=== PATIENT | male | born 1980 | race American Indian/Alaskan Native ===

== ENCOUNTER 2017-04-30 23:16 | Emergency (ER) | payer SELFPAY ==
[2017-04-30 23:39] VITALS: BP 156/103
[2017-05-01 00:38] LABS: Bilirubin,Urine NEG (Negative); Blood,Urine NEG (Negative); Calcium Oxalate Crystals,Urine 1+; Color,Urine Yellow (Yellow); Mucus,Urine FEW /HPF; Protein,Urine <15 mg/dL mg/dL (Negative)
--- NOTE | 2017-05-01 01:43 | Emergency Department Report ---
ED Male HPI - General Chief complaint: Urogenital-Male Stated complaint: PENILE PAIN Time Seen by Provider: 05/01/17 01:38 Source: patient Mode of arrival: Ambulatory Limitations: No Limitations - History of Present Illness Initial comments: 37-year-old -[place] male comes in for complaint of burning on urination 2 weeks. Patient reports he has not seen any penile discharge. He reports he is sexually active last 2 weeks. He is actively women unprotected. He does have a past medical history of hypertension and is taken off amlodipine/ Benzapril. Patient does not have a primary care provider at this time. Patient denies any nausea vomiting no fever no chills. MD Complaint: dysuria - Related Data Previous Rx's Medication Instructions Recorded Last Taken Type Doxycycline [Vibramycin CAP] 100 mg PO Q12HR #20 capsule 05/01/17 Unknown Rx Allergies Allergy/AdvReac Type Severity Reaction Status Date / Time No Known Allergies Allergy Unverified 04/30/17 23:34 ED Review of Systems ROS: Stated complaint: PENILE PAIN Other details as noted in HPI Constitutional: denies: chills, fever Eyes: denies: eye pain, eye discharge, vision change ENT: denies: ear pain, throat pain Respiratory: denies: cough, shortness of breath, wheezing Cardiovascular: denies: chest pain, palpitations Endocrine: no symptoms reported Gastrointestinal: denies: abdominal pain, nausea, diarrhea Genitourinary: dysuria. denies: urgency Musculoskeletal: denies: back pain, joint swelling, arthralgia Skin: denies: rash, lesions Neurological: denies: headache, weakness, paresthesias Psychiatric: denies: anxiety, depression Hematological/Lymphatic: denies: easy bleeding, easy bruising ED Past Medical Hx - Past Medical History Previous Medical History?: Yes Hx Hypertension: Yes - Surgical History Past Surgical History?: Yes Additional Surgical History: Rt knee - Social History Smoking Status: Never Smoker Substance Use Type: None - Medications Home Medications: Home Medications Medication Instructions Recorded Confirmed Last Taken Type Doxycycline [Vibramycin CAP] 100 mg PO Q12HR #20 capsule 05/01/17 Unknown Rx ED Physical Exam - General Limitations: No Limitations General appearance: alert, in no apparent distress - Head Head exam: Present: atraumatic, normocephalic - Eye Eye exam: Present: normal appearance - ENT ENT exam: Present: mucous membranes moist - Neck Neck exam: Present: normal inspection - Respiratory Respiratory exam: Present: normal lung sounds bilaterally. Absent: respiratory distress - Cardiovascular Cardiovascular Exam: Present: regular rate, normal rhythm. Absent: systolic murmur, diastolic murmur, rubs, gallop - GI/Abdominal GI/Abdominal exam: Present: soft, normal bowel sounds - Rectal Rectal exam: Present: deferred - Extremities Exam Extremities exam: Present: normal inspection - Back Exam Back exam: Present: normal inspection - Neurological Exam Neurological exam: Present: alert, oriented X3 - Psychiatric Psychiatric exam: Present: normal affect, normal mood - Skin Skin exam: Present: warm, dry, intact, normal color. Absent: rash ED Course Vital Signs 04/30/17 23:34 Temperature 98.3 F Pulse Rate 92 H Respiratory 19 Rate Blood Pressure 156/103 O2 Sat by Pulse 99 Oximetry ED Medical Decision Making - Medical Decision Making Patient has been evaluated by this provider fast track. I discussed the patient that his urinalysis came back negative. I discussed the patient we can present to treat him for STD. Discussed the patient he can follow-up and 3-7 days in medical records if he would like to know the results of his gonorrhea and chlamydia testing. Discussed the patient I will refer him to [facility] for management of his hypertension. Patient verbalized understanding Critical care attestation.: If time is entered above; I have spent that time in minutes in the direct care of this critically ill patient, excluding procedure time. ED Disposition Clinical Impression: Dysuria, Concern about STD in male without diagnosis Disposition: DC-01 TO HOME OR SELFCARE Is pt being admited?: No Does the pt Need Aspirin: No Condition: Stable Instructions: Sexually Transmitted Diseases (ED), Safe Sex (ED) Additional Instructions: Please take medication as prescribed. Please follow-up with [facility] for management of her hypertension. Please continue with your hypertensive medicine. Please inform her sexual partner that she been tested and treated for STD. Advised to not have intercourse until your partners tested and treated. You may come up here in 3-7 days to medical records to obtain near cultures for gonorrhea and chlamydia. Prescriptions: Doxycycline [Vibramycin CAP] 100 mg PO Q12HR #20 capsule Referrals: EDGAR MATA MD [Primary Care Provider] - 3-5 Days Forms: Work/School Release Form(ED)
[2017-05-01] MEDS ORDERED: ZITHROMAX PO ONE (01:46)
[2017-05-01] MEDS ORDERED: XYLOCAINE 1% MPF 5 mL INFILTRATI ONE (01:46)
[2017-05-01] MEDS ORDERED: ROCEPHIN IM ONE (01:46)
== END 2017-05-01 02:17 | disposition home or self-care (01) ==
LOC: ED 23:16
DX: R30.0 Dysuria (principal); I10 Essential (primary) hypertension
CPT/HCPCS: 81001; 87086; 87591; 96372; 99283; J0696

== ENCOUNTER 2020-10-24 09:26 | Emergency (ER) | payer SELFPAY ==
[2020-10-24 09:35] VITALS: BP 106/90
--- NOTE | 2020-10-24 10:44 | Emergency Department Report ---
ED Back Pain/Injury HPI - General Chief Complaint: Back Pain/Injury Stated Complaint: BACK PAIN Time Seen by Provider: 10/24/20 10:24 Source: patient, family Limitations: No Limitations - History of Present Illness Initial Comments: 40-year-old male with a past medical history of hypertension presents to the ER today with complaints of right low back pain. Patient states that his symptoms started about 2 to 3 days ago. He states that he woke up with the pain. Patient denies any particular injury. 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 Patient states that the pain is a sharp pain that is worse with certain movements. It is nonradiating. He has no associated abdominal pain, saddle anesthesia, bowel bladder incontinence, lower extremity numbness tingling or weakness. He denies any abdominal pain or chest pain. He denies any fever or chills. Patient states that he has been trying to do warm compresses and massages without much relief of his pain. He has not tried anything oral for the pain. He denies any past history of back pain or surgery to his back. MD Complaint: back pain -: Gradual, days(s) (2-3) - Related Data Previous Rx's Medication Instructions Recorded Last Taken Type DOXYCYCLINE Hyclate [Vibramycin 100 mg PO Q12HR #20 capsule 05/01/17 Unknown Rx CAP] Ibuprofen [Motrin] 600 mg PO Q8H PRN #30 tablet 10/24/20 Unknown Rx Lidocaine [Lidoderm] 1 each TP Q12H #10 adh..patch 10/24/20 Unknown Rx methOCARBAMOL [Robaxin TAB] 500 mg PO Q8H PRN #30 tablet 10/24/20 Unknown Rx Allergies Allergy/AdvReac Type Severity Reaction Status Date / Time No Known Allergies Allergy Unverified 04/30/17 23:34 ED Review of Systems ROS: Stated complaint: BACK PAIN Other details as noted in HPI Comment: All other systems reviewed and negative Constitutional: denies: chills, fever Eyes: denies: eye pain, eye discharge, vision change ENT: denies: ear pain, throat pain Respiratory: denies: cough, shortness of breath, SOB with exertion, SOB at rest, wheezing Cardiovascular: denies: chest pain, palpitations, dyspnea on exertion, edema, syncope, paroxysmal nocturnal dyspnea Gastrointestinal: abdominal pain. denies: nausea, vomiting, diarrhea, constipation, hematemesis, melena, hematochezia Genitourinary: denies: urgency, dysuria, frequency, hematuria, discharge, testicular pain, testicular mass Musculoskeletal: back pain. denies: joint swelling, arthralgia, myalgia Skin: denies: rash, lesions, change in color, change in hair/nails, pruritus Neurological: denies: headache, weakness, numbness, paresthesias, confusion, abnormal gait, vertigo Psychiatric: denies: anxiety, depression, auditory hallucinations, visual hallucinations, homicidal thoughts, suicidal thoughts Hematological/Lymphatic: denies: easy bleeding, easy bruising, swollen glands ED Past Medical Hx - Past Medical History Previous Medical History?: Yes Hx Hypertension: Yes - Surgical History Past Surgical History?: Yes Additional Surgical History: Rt knee - Social History Smoking Status: Never Smoker Substance Use Type: None - Medications Home Medications: Home Medications Medication Instructions Recorded Confirmed Last Taken Type DOXYCYCLINE Hyclate [Vibramycin 100 mg PO Q12HR #20 capsule 05/01/17 Unknown Rx CAP] Ibuprofen [Motrin] 600 mg PO Q8H PRN #30 tablet 10/24/20 Unknown Rx Lidocaine [Lidoderm] 1 each TP Q12H #10 adh..patch 10/24/20 Unknown Rx methOCARBAMOL [Robaxin TAB] 500 mg PO Q8H PRN #30 tablet 10/24/20 Unknown Rx ED Physical Exam - General Limitations: No Limitations General appearance: alert, in no apparent distress - Head Head exam: Present: atraumatic, normocephalic, normal inspection - Eye Eye exam: Present: normal appearance, PERRL, EOMI Pupils: Present: normal accommodation - Neck Neck exam: Present: normal inspection, full ROM - Respiratory Respiratory exam: Present: normal lung sounds bilaterally. Absent: respiratory distress, wheezes, rales, rhonchi - Cardiovascular Cardiovascular Exam: Present: regular rate, normal rhythm, normal heart sounds - GI/Abdominal GI/Abdominal exam: Present: soft. Absent: distended, tenderness, guarding, rebound - Back Exam Back exam: Present: muscle spasm (Significant muscle spasm noted to the paraspinal muscle along the lumbar spine on the right side), paraspinal tenderness (Moderate right paraspinal muscle tenderness upper mid and lower lumbar area). Absent: full ROM (Range of motion of the lumbar spine moderately reduced due to pain), vertebral tenderness - Neurological Exam Neurological exam: Present: alert, oriented X3, CN II-XII intact, abnormal gait (Slow but otherwise normal) - Psychiatric Psychiatric exam: Present: normal affect, normal mood - Skin Skin exam: Present: intact ED Course Vital Signs 10/24/20 09:32 Temperature 98.4 F Pulse Rate 86 Respiratory 20 Rate Blood Pressure 106/90 [Right] O2 Sat by Pulse 100 Oximetry ED Medical Decision Making - Medical Decision Making The patient presented with acute back pain. The patient is is alert, talkative, interactive and in no distress. Tthe patient has no fever, no bowel or bladder incontinence, no saddle anesthesia and is otherwise alert and well- appearing. Suspec back spasms at this time. His history, and physical examination does not suggest the presence of acute spinal epidural abscess, acute epidural bleed, cauda equina syndrome, abdominal/thoracic aortic aneurysm, aortic dissection or other acute process requiring further testing, treatment or consultation in the emergency department. His vital signs have been stable. The patient condition is stable and appropriate for discharge. The patient will pursue further outpatient evaluation with the primary care physician or other designated. Critical care attestation.: If time is entered above; I have spent that time in minutes in the direct care of this critically ill patient, excluding procedure time. ED Disposition Clinical Impression: Lumbar spine strain, Lumbar paraspinal muscle spasm Disposition: HOME / SELF CARE / HOMELESS Is pt being admited?: No Does the pt Need Aspirin: No Condition: Stable Instructions: Muscle Cramps and Spasms, [id number], Lumbar Sprain Additional Instructions: I recommend that you take the muscle relaxer, the Robaxin and use the lidocaine patches as prescribed. Also take the Motrin as prescribed to help with additional pain control. Recommend following the back stretching exercises listed on your discharge instructions. Follow-up with your primary care doctor and or infantry operations specialist listed on your discharge instructions in 1 to 2 weeks if your symptoms persist. Return to the ER if your symptoms changes or worsens in any way. Prescriptions: Lidocaine [Lidoderm] 1 each TP Q12H #10 adh..patch Ibuprofen [Motrin] 600 mg PO Q8H PRN #30 tablet PRN Reason: Pain methOCARBAMOL [Robaxin TAB] 500 mg PO Q8H PRN #30 tablet PRN Reason: Muscle Spasm Referrals: [facility] [Provider Group] - 7-10 days Forms: Work/School Release Form(ED) Time of Disposition: 10:46
[2020-10-24] MEDS: KETOROLAC 60 MG/2 ML INJ IM ONE (11:43)
== END 2020-10-24 12:25 | disposition home or self-care (01) ==
LOC: ED 09:26
DX: S39.012A Strain of muscle, fascia and tendon of lower back, initial encounter (principal); M62.830 Muscle spasm of back; I10 Essential (primary) hypertension; Z98.890 Other specified postprocedural states; Z79.899 Other long term (current) drug therapy; X58.XXXA Exposure to other specified factors, initial encounter; Y93.89 Activity, other specified; Y92.89 Other specified places as the place of occurrence of the external cause; Y99.8 Other external cause status
CPT/HCPCS: 96372; 99282; J1885